=== PATIENT | male | born 1990 | race African-American/Black ===

== ENCOUNTER 2020-05-23 10:37 | Emergency (ER) | payer MEDICAID, SELFPAY ==
[2020-05-23 11:12] VITALS: BP 143/75; PULSE 83; RESP 18; TEMP 36.6; O2SAT 99; BMI 23.4
--- NOTE | 2020-05-23 11:18 | HMH.EDUTC ---
[facility] [place] Clinical Impression: Exposure to COVID-19 virus Disposition: Home, Self-Care Condition on Discharge: Good Instructions: DI for COVID-19 (Suspected or Confirmed ), COVID-19: Testing and Tracing, Preventing the Spread of Coronavirus Discharge Instructions Additional Instructions: *Monitor Temp, Over the counter Motrin or Tylenol as directed/as needed Tylenol every 4 hours and Motrin every 6 hours (as long as your family doctor has told you that you can take it) for fever or pain. and straight to ER if unable to lower temp less than 101.0 after medication given Follow up IMMEDIATELY for new or worsening symptoms or no Noticeable improvement over the next 48-72 hours. 911 for difficulty breathing or swallowing You were tested for today for COVID19 your test result should be back in the next 24-48 hours, you may call to the [facility] to see if your test results are back in the next 48 hours [phone] [facility] hours are 9am-9pm You was given a handout with instructions for Self Quarantine and Self isolation for while you wait on test results and what to do if they are positive If you are positive the Health Dept will be contacting you also Referrals: Rogerio Rowe MD [Primary Care Provider] - As needed Forms: Work/School Release Time of Disposition: 11:20 Medical Decision Making - Chay Inquiry Pt receiving controlled substance: No Chay was queried for this patient: No Vital Signs: 05/23/20 11:12 Temperature 97.9 F Temperature Source Oral Pulse Rate [Radial] 83 Respiratory Rate 18 Blood Pressure [Right Arm] 143/75 H Blood Pressure Mean [Right Arm] 97 Blood Pressure Source [Right Arm] Automatic Cuff Blood Pressure Position [Right Arm] Sitting 02 Sat by Pulse Oximetry 99 Oxygen Delivery Method Room Air Orders (Tests/Meds): ORDERS Category Date Time Status Covid-19 Nasal PCR ([facility]) Routine Lab 05/23/20 10:44 Ordered [facility] [place] - General Stated complaint: WANTS cOVID TEST Time Seen by Provider: 05/23/20 11:19 Mode of Arrival: Ambulatory Source of Information: Patient Limitations: No Limitations Description of Symptoms (Recalled from Triage Doc. by RN): wants covid test, no symptoms HEENT Symptoms (Recalled from RN notes): No Resp Symptoms (Recalled from RN notes): No Skin Symptoms (Recalled from RN notes): No MS Symptoms (Recalled from RN notes): No Functional Status (Recalled from RN notes): wnl - History of Present Illness Provider Complaint: Patient states that he was recently around his step mother that has since tested positive for COVID States that he is not having any symptoms but wanted to come in and get tested - Related Data Allergies Allergy/AdvReac Type Severity Reaction Status Date / Time No Known Allergies Allergy Verified 03/04/19 17:34 - Worker's Comp Is this a Worker's Comp case?: No H History - Hepatitis A Screen Drug use history?: No High risk sexual behaviors?: No History of sexually transmitted infection?: No Currently employed?: No Childcare worker?: No Do you have indoor plumbing?: Yes Do you have electricity?: Yes Attestation statement:: This patient has been screened for Hepatitis A risk factors. I have reviewed the patient's past medical history: Yes - Social History Alcohol Intake: never Occupational Status: other ROS Obtained: Yes All systems reviewed & no additional complaints, Yes Systems reviewed as appropriate & no additional complaints - Constitutional Constitutional: Reports system reviewed and no additional complaints, except as docu, Denies body ache, Denies chills, Denies fever(s), Denies headache(s) - ENT Ears, Nose, Mouth, and Throat: Reports system reviewed and no additional complaints, except as docu, Denies nasal congestion, Denies nasal discharge, Denies sore throat - Cardiovascular Cardiovascular: Reports system reviewed and no additional complaints, except as docu - Respiratory Respiratory: Yes system reviewe
[2020-05-23 11:26] VITALS: BP 143/75; PULSE 83; RESP 18; TEMP 36.6; O2SAT 99
--- NOTE | 2020-05-23 15:28 | PC.NURSE ---
Patient notified of positive COVID results. Educated on quarantine.
== END 2020-05-23 11:27 | disposition home or self-care (01) ==
PROVIDERS: Emergency Provider Nurse Practitioner; PCP Family Medicine
DX: U07.1 COVID-19 (principal)
CPT/HCPCS: 99201; U0003

== ENCOUNTER 2020-06-03 15:54 | Emergency (ER) | payer OTHER, SELFPAY ==
[2020-06-03 15:54] VITALS: BP 128/64; PULSE 66; RESP 14; TEMP 37; O2SAT 99; BMI 23.4
--- NOTE | 2020-06-03 16:54 | HMH.EDUTC ---
[facility] [place] Disposition Clinical Impression: Exposure to COVID-19 virus Disposition: Home, Self-Care Condition on Discharge: Good Instructions: DI for COVID-19 (Suspected or Confirmed ), Preventing the Spread of Coronavirus Discharge Instructions Additional Instructions: Drink plenty of fluids. Take tylenol or ibuprofen for pain or fever. Take the medications as directed. Follow up with your regular doctor. GO TO THE ER FOR ANY WORSENING SYMPTOMS Referrals: Rogerio Rowe MD [Primary Care Provider] - Time of Disposition: 16:56 Medical Decision Making - Medical Records Medical records reviewed: No: I reviewed the patient's medical records. - Chay Inquiry Pt receiving controlled substance: No Vital Signs: 06/03/20 15:54 06/03/20 17:04 Temperature 98.6 F 98.6 F Temperature Source Oral Oral Pulse Rate 66 Pulse Rate [Right] 66 Respiratory Rate 14 14 Blood Pressure 128/64 Blood Pressure [Right Arm] 128/64 Blood Pressure Mean [Right Arm] 85 02 Sat by Pulse Oximetry 99 Oxygen Delivery Method Room Air [facility] [place] HPI - General Stated complaint: COVID test Tested positive 2 wks ago Time Seen by Provider: 06/03/20 16:54 Mode of Arrival: Ambulatory Source of Information: Patient Limitations: No Limitations Description of Symptoms (Recalled from Triage Doc. by RN): pt request COVID test pt has no symptoms HEENT Symptoms (Recalled from RN notes): No Resp Symptoms (Recalled from RN notes): No Skin Symptoms (Recalled from RN notes): No MS Symptoms (Recalled from RN notes): No Functional Status (Recalled from RN notes): wnl - Related Data Allergies Allergy/AdvReac Type Severity Reaction Status Date / Time No Known Allergies Allergy Verified 03/04/19 17:34 - Worker's Comp Is this a Worker's Comp case?: No Is this an H Worker's Comp?: No Is this a [place] Worker's Comp?: No [facility] History - Hepatitis A Screen Drug use history?: No High risk sexual behaviors?: No History of sexually transmitted infection?: No Currently employed?: No Childcare worker?: No Do you have indoor plumbing?: Yes Do you have electricity?: Yes Attestation statement:: This patient has been screened for Hepatitis A risk factors. I have reviewed the patient's past medical history: Yes - Social History Alcohol Intake: never Occupational Status: other ROS Obtained: Yes All systems reviewed & no additional complaints - Constitutional Constitutional: Reports system reviewed and no additional complaints, except as docu - Eyes Eyes: Reports system reviewed and no additional complaints, except as docu - ENT Ears, Nose, Mouth, and Throat: Reports system reviewed and no additional complaints, except as docu - Cardiovascular Cardiovascular: Reports system reviewed and no additional complaints, except as docu - Respiratory Respiratory: Reports system reviewed and no additional complaints, except as docu - Gastrointestinal Gastrointestingal: Reports: system reviewed and no additional complaints, except as docu Physical Exam - General General appearance: alert, in no apparent distress - Head Head exam: atraumatic, normocephalic, normal inspection - Eye Eye exam: Present: normal appearance, PERRL, EOMI - ENT ENT exam: Present: normal exam, normal oropharynx, mucous membranes moist, TM's normal bilaterally, normal external ear exam - Neck Neck exam: Present: normal inspection, full ROM, trachea midline. Absent: meningismus, lymphadenopathy - Chest Chest inspection: Present: normal inspection, symmetric chest wall rise. Absent: tenderness - Respiratory Respiratory exam: Present: normal lung sounds bilaterally. Absent: respiratory distress - Cardiovascular Cardiovascular exam: Present: regular rate, normal rhythm. Absent: JVD - Abdominal Exam Abdominal exam: Present: soft, normal bowel sounds. Absent: distention, tenderness, guarding - Extremities Exam Extremities exam: Present: normal
[2020-06-03 17:04] VITALS: BP 128/64; PULSE 66; RESP 14; TEMP 37; O2SAT 99
--- NOTE | 2020-06-04 14:05 | PC.NURSE ---
PATIENT NOTIFIED OF POSITIVE COVID RESULTS
== END 2020-06-03 17:10 | disposition home or self-care (01) ==
PROVIDERS: Emergency Provider Nurse Practitioner Family; PCP Family Medicine
DX: U07.1 COVID-19 (principal)
CPT/HCPCS: 99202; G0463; U0003

== ENCOUNTER 2024-09-19 09:22 | Emergency (ER) | payer BC, SELFPAY ==
[2024-09-19 09:56] VITALS: BP 138/86; PULSE 91; RESP 20; TEMP 36.8; O2SAT 97; BMI 25.3
[2024-09-19] MEDS: ONDANSETRON 4MG ODT 4 MG SL (10:02)
[2024-09-19] MEDS: LOPERAMIDE 2MG CAPSULE 4 MG PO (10:03)
--- NOTE | 2024-09-19 10:03 | HMH.EDGENADL ---
Discharge Plan Disposition Patient Disposition: Home, Self-Care Chief Complaint: Nausea/Vomiting/Diarrhea Prescriptions Prescriptions: New ondansetron 4 mg tablet,disintegrating 4 mg PO Q6H PRN (Reason: nausea and vomiting) Qty: 10 0RF Referrals Follow up/Referrals: Rogerio Rowe MD [Primary Care Provider] - See instructions Activity Restrictions/Add. Instructions Additional Instructions/Restrictions: Call your family doctor to establish care for this visit to the emergency department and schedule follow-up within 48 hours to ensure improvement. If you have any worsening of your condition or any other concerning signs or symptoms, return to the emergency department or your primary care doctor for further evaluation. Zofran every 6 hours as needed for nausea and vomiting. 15 minutes before meals can help stimulate appetite and prevent vomiting. Imodium can be taken [id number] to help with diarrhea. Clinical Impressions Clinical Impression: Diarrhea, Nausea Instructions Patient Instructions: DI for Diarrhea and Traveler's Diarrhea -- Adult, DI for Diarrhea and Traveler's Diarrhea -- Child, DI for Nausea -- Adult, DI for Nausea -- Child Print Language Print Language: Bots[place] Discharge ED Provider: Mike Newton General Adult HPI General Chief complaint: Nausea/Vomiting/Diarrhea Stated complaint: Nausea, Diarrhea Time Seen by Provider: 09/19/24 09:26 Mode of Arrival: Ambulatory Source of Information: Patient Description of Symptoms (Recalled from ER Triage Doc. by RN): pt is here bc he is having diarrhea since monday with some body aches been exposed to sick family member History of Present Illness HPI narrative: Please note that above description of symptoms, in this electronic medical record under categorization of recalled from ER triage doctor by RN are reflective of an initial nursing assessment, however, is not reflective of my full history and physical exam that was personally taken and clarified. Consequentially, this preceding description of symptoms, which may include the patient's categorized chief complaint in the EMR, do not reflect my personal clinical impression, and the ultimate description of history of present illness and patient stated complaints should be deferred to this section of the note. Unless stated otherwise or congruent with this section of the note, additional signs, symptoms, or incongruence should be interpreted as inaccurate with my clinical impression. Related Data Previous Rx's ?Medication ?Instructions ?Recorded ondansetron 4 mg disintegrating 4 mg PO Q6H PRN nausea and 09/19/24 tablet vomiting #10 tabs Allergies Allergy/AdvReac Type Severity Reaction Status Date / Time No Known Allergies Allergy Verified 03/04/19 17:34 [facility] Disclaimer: The information contained in this section may have been updated after the patient was seen, as this information can be updated by other users. Social History Smoking Status: Current every day smoker alcohol intake: never current occupational status: other Travel in the last 8 weeks: None Have you lived/traveled outside US in past 30 days?: No Contact w/someone who lives/traveled outside US past 30 days?: No Exposure to someone with infectious disease in past 14 days?: No Do you have a fever (greater than 100.4 F or 38 C)?: No Have you tested positive for COVID-19: No Exposed to someone with COVID-19 in past 14 days?: No Do you have a sore throat?: No Do you have a cough?: No Do you have any weakness?: No Do you have any diarrhea?: Yes Are you experiencing any unusual bleeding?: No Do you have any muscle aches/pain?: No Do you have any abdominal pain?: No Are you experiencing loss of taste or smell?: No ROS Obtained: Yes All systems reviewed & no additional complaints except as documented Physical Exam General General appearance: alert Head Head exam: atraumatic and normocephalic Eye Eye exam: Present normal appearance, PERRL and EOMI Neck Neck exam: Present normal inspection, full ROM and trachea midline Respiratory Respiratory exam: Absent respiratory distress, wheezes, stridor, accessory muscle use or prolonged expiratory phase Cardiovascular Cardiovascular exam: Present other (Pulses equal symmetric in upper and lower extremities) Abdominal Exam Abdominal exam: Present soft; Absent distention, tenderness or pulsatile mass Extremities Exam Extremities exam: Absent edema Neurological Exam Neurological exam: Present alert, oriented X3 and CN II-XII intact; Absent motor sensory deficit Skin Skin exam: Present warm and dry; Absent diaphoresis or erythema Medical Decision Making Medical Records Medical records reviewed: Yes I reviewed the patient's medical records. Screening: Per USPSTF and CDC recommendations, given the prevalence of disease in our region, it is our hospital?s policy to screen for HIV and viral Hepatitis for all patients aged 18 and over and those with ongoing risk factors. Chay Inquiry Pt receiving controlled substance: No Chay was queried for this patient: No Vital Signs: 09/19/24 09:56 Temperature 98.2 F Temperature Source Oral Pulse Rate [Left Radial] 91 H Respiratory Rate 20 Blood Pressure [Right Arm] 138/86 Blood Pressure Mean [Right Arm] 103 02 Sat by Pulse Oximetry 97 Oxygen Delivery Method Room Air Orders (Tests/Meds): ED MEDICATIONS Discontinued Medications Generic Name Dose Route Start Last Admin Trade Name Carol PRN Reason Stop Dose Admin Loperamide HCl 4 mg 09/19/24 09:37 09/19/24 10:03 Loperamide 2mg Capsule PO 09/19/24 09:38 4 mg ONCE ONE Administration Ondansetron HCl 4 mg 09/19/24 09:37 09/19/24 10:02 Ondansetron 4mg Odt SL 09/19/24 09:38 4 mg ONCE ONE Administration Medical Decision Narrative: 34-year-old male presenting with GI illness. He states that he has been having diarrhea for couple of days at this point, associate with nausea. No vomiting. Diarrhea is nonbloody. No fevers or chills, but generalized weakness and intermittent headaches he is attributing to dehydration which improved with hydrating measures and electrolyte rich fluids. Numerous sick contacts with similar symptoms. History was obtained via conversation with patient. On arrival, patient hemodynamically stable, alert, oriented x4, appropriate, GCS 15, moving all extremities spontaneously, pupils equal and reactive to light. Full physical exam performed and significant for clinically well, no acute distress. Abdomen soft, nontender, nondistended. Lungs are clear, nontachycardic. Unremarkable overall. Differential includes viral syndrome, among others. Because patient nontachycardic no systemic signs or symptoms and clinically very well, hematologic workup was considered, not performed at this time. Given p.o. Zofran and p.o. challenged successfully. Also given Imodium for diarrhea. On reevaluation, patient states his nausea is improved. Because patient at baseline without signs or symptoms of clinical decompensation, deemed appropriate for discharge. Results were relayed to patient who voiced understanding and were agreeable to outpatient management and follow up. I discussed my clinical impression with patient and answered all questions. At this time, the evidence for any other entities in the differential is insufficient to warrant any further testing or ED observation. This was explained as well. Advisory was given that persistent or worsening symptoms require further evaluation. I confirmed the understanding of this discussion. Pick Up And Delivery Driver disclaimer Much of this encounter note is an electronic senior restaurant manager spoken language to printed text. Electronic senior restaurant manager of the spoken language may permit errors. Although I have reviewed the note, some errors may still exist. Critical Care Critical Care Time Critical Care Time: No
[2024-09-19 10:38] VITALS: BP 132/79; PULSE 80; RESP 20; TEMP 36.7; O2SAT 98
== END 2024-09-19 10:39 | disposition home or self-care (01) ==
PROVIDERS: Emergency Provider Emergency Medicine; PCP Family Medicine
DX: R19.7 Diarrhea, unspecified (principal); R11.0 Nausea; R53.1 Weakness
CPT/HCPCS: 99283; Q0162

== ENCOUNTER 2025-03-21 10:59 | Outpatient (CLI) | payer BC, SELFPAY ==
--- NOTE | 2025-03-21 11:02 | XR_ITS ---
FINAL REPORT CLINICAL HISTORY: right knee pain,,no trauma FINDINGS: RIGHT KNEE Four views were obtained. There is no fracture or dislocation. The joint spaces appear normal. No soft tissue abnormality is identified. IMPRESSION: No acute process. Reviewed, Interpreted and Dictated by Dena Barron MD Transcribed by Joyce Bennett Authenticated and [facility]
--- OUTSIDE RECORDS SUMMARY | 2025-03-21 11:17 | XMS_ITS | Clinical Summary ---
Author Organization [facility] ystem Address [address] [place] [address] Care Team Providers Care Doctor Of Chiropractic Name Role Phone Provider, No Known Primary Care Provider Unavail able Allergies No known active allergies Medications HYDROcodone-lilia taminophen ([place]) 5-325 MG per tabletIndicatio ns:Encounter for vasectomy Take 1 tablet by mouth Every 6 (Six) Hours As Needed for Severe Pain. 10 tablet 07/14/2022 Active bacitracin-poly myxin b (POLYSPORIN) [id number] UNIT/GM ointmentIndicat ions:Encounter for vasectomy Apply to scrotal incision twice daily. 30 g 07/14/2022 Active Active Problems No known active problems Social History Tobacco Use Types Packs/Day Years Used Date Smoking Tobacco: Former Cigarettes Tobacco Cessation:Counseling Given: Not Answered Alcohol Use Standard Drinks/Week Comments Yes 0 (1 standard drink = 0.6 oz pur e alcohol) Abuse Screen Answer Date Recorded Unsafe at Home or Work/School Not on file Feels Threatened by Someone? Not on file Does Anyone Keep You from Co ntacting Others or Doint Things Outside the Home? Not on file 03/10/2023 Physical Sign of Abuse Present Not on file 1 Housing Stability Answer Date Recorded Current Living Arrangements Not on file 02/26 Potentially Unsafe Housing Conditions Not on nikia e 03/10/2023 Family and Community Support Answer Tino e Recorded Help with Day-to-Day Activities Not on file 03/10/2023 Lonely or Isolated Not on file 03/10/2023 Employment Answer Date Recorded Do you want help finding or keeping work or a herman b? Not on file 03/10/2023 Disabilities Answer Date Recorded Concentrating, Remembering, or Making Decisions Difficulty Not on file 03/10/2023 Doing Errands Independently Difficulty Not on fi le 03/10/2023 Education Answer Date Recorded Help with school or training? Not on file Preferred Language Not on file 03/10/2023 Sex and Gender Information Value Date Recorded Sex Assigned at Not on file Legal Sex Male 2:51 PM EST Gender Identity Not on file Sexual Orientation Not on file Last Filed Vital Signs Vital Sign Reading Time Taken Comments Blood Pressure - - Pulse - - Temperature - - Respiratory Rate - - Oxygen Saturation - - Inhaled Oxygen Concentration - - Weight 84.8 kg (187 lb) 06/22/2022 10:51 AM EST Height 185.4 cm (6' 1 ) 06/22/2022 10:51 AM EST Body Mass Index 24.67 06/22/2022 10:51 AM EST Plan of Treatment Health Maintenance Due Date Last Done Comments TDAP/TD VACCINES (1 - Tdap) 09/15/2010 ANNUAL PHYSICAL 06/20/2022 HEPATITIS C SCREENING 06/20/2022 INFLUENZA VACCINE 12/27/2024 Pneumococcal Vaccine 0-49 Aged Out No longer eligible based on patient's age to complete this topic Insurance [facility] PPO Care Teams Doctor Of Chiropractic Relationship Specialty Start Date End Date Provider, No Known [facility] [place] [address] PCP - General 06/22/22
== END 2025-03-21 23:59 | disposition home or self-care (01) ==
LOC: RAD 11:00
PROVIDERS: Visit Provider Physician Assistant
DX: M25.561 Pain in right knee (principal)
CPT/HCPCS: 73562

== ENCOUNTER 2025-04-04 12:35 | Outpatient (CLI) | payer BC, SELFPAY ==
--- OUTSIDE RECORDS SUMMARY | 2025-04-04 12:38 | XMS_ITS | Clinical Summary ---
Author Organization [facility] ystem Address [address] [place] [address] Care Team Providers Care System Support Administrator Name Role Phone Provider, No Known Primary Care Provider Unavail able Allergies No known active allergies Medications HYDROcodone-lilia taminophen ([place]) 5-325 MG per tabletIndicatio ns:Encounter for vasectomy Take 1 tablet by mouth Every 6 (Six) Hours As Needed for Severe Pain. 10 tablet 07/14/2022 Active bacitracin-poly myxin b (POLYSPORIN) [id number] UNIT/GM ointmentIndicat ions:Encounter for vasectomy Apply to [...] patient's age to complete this topic Insurance [facility] PPO Care Teams System Support Administrator Relationship Specialty Start Date End Date Provider, No Known [facility] [place] [address] PCP - General 06/22/22
--- NOTE | 2025-04-04 13:00 | MR_ITS ---
FINAL REPORT CLINICAL HISTORY: internal derangement of right knee medial sided knee pain instability hx of knee surgery in 2009 FINDINGS: Multi planar MR imaging was performed of the right knee. The anterior and posterior cruciate ligaments are intact. The quadriceps and patellar tendons are intact. There is flattening of the posterior horn medial meniscus but a discrete tear is not seen. The lateral meniscus is intact. The medial and lateral collateral ligaments appear intact. The medial and lateral retinacula appear intact. There is an osteochondral lesion along the articular surface of the medial femoral condyle measuring 6 mm. Underlying edema is identified. 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 No evidence of soft tissue inflammatory reaction. IMPRESSION: Osteochondral lesion of the medial femoral condyle. 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 Reviewed, Interpreted and Dictated by Pete Holloway MD Transcribed by Joyce Bennett Authenticated and [facility]
== END 2025-04-04 23:59 | disposition home or self-care (01) ==
LOC: RAD 12:36
PROVIDERS: Visit Provider Physician Assistant
DX: M22.41 Chondromalacia patellae, right knee (principal); M92.8 Other specified juvenile osteochondrosis
CPT/HCPCS: 73721